=== PATIENT | male | born 1960 | race African-American/Black ===

== ENCOUNTER 2020-09-29 13:36 | Emergency (ER) | payer OTHER ==
[~2020-09-29] VITALS: Ht 170.2 cm; Wt 65.8 kg
[~2020-09-29 13:36] MED LIST: Acetaminophen 500mg (ES) tab ORAL SCH
--- NOTE | 2020-09-29 13:45 | NUR ---
ED Nurse Note: Pt BIBA R68 for R leg pain. Pt had a stroke 2 weeks ago. Pt is alert and orientedx4, ambulatory. Pt has been seen by ERMD. He has multiple wounds on posterior legs, R hip, L hand, no drainage on any of brielle wounds.
--- NOTE | 2020-09-29 14:10 | NUR ---
ED Nurse Note: Pt brought in by R68 for R leg pain 03/30. Pt also had stroke 2 weeks ago. Pt has wounds with no drainage on bilateral posterior legs, buttocks, L hand, R hip. Pt is alert and orientedx4, wheelchair bound. Pt has limited motion 3/5 on legs.
--- NOTE | 2020-09-29 14:13 | Emergency Room Report ---
History of Present Illness General Chief Complaint: Lower Extremity Injury Source: Patient Present Illness HPI Disclaimer: Please note that this report is being documented using DRAGON technology. This can lead to erroneous entry secondary to incorrect interpretation by the dictating instrument. HPI: 59-year-old male presents complaining of right leg pain. He [place] by EMS from the streets. He is wheelchair-bound from a stroke. Requesting clean clothes and something to eat as his clothes have become soiled and wet. Denies injury. He states he will have intermittent numbness and tingling in his fingertips and in his feet since his stroke several weeks ago. Denies pain in the neck or back. Denies urinary retention or fecal incontinence. EMS did not bring the patient's wheelchair. Denies bleeding, sores or skin breakdown otherwise. PMH: CVA PSH: Reviewed Allergies: Reviewed Social Hx: Reviewed Allergies: Coded Allergies: No Known Allergies (Unverified , 09/29/20) COVID-19 Screening Contact w/high risk pt: No Experienced COVID-19 symptoms?: No COVID-19 Testing performed DETAIL MANAGER: No Nursing Documentation-PMH Past Medical History: No History, Except For Hx Hypertension: Yes Hx Cerebrovascular Accident: Yes - right sided weakness Review of Systems All Other Systems: negative except mentioned in HPI Physical Exam Vital Signs Date Time Temp Pulse Resp B/P (MAP) Pulse Ox O2 Delivery O2 Flow Rate FiO2 09/29/20 13:28 98.4 88 16 148/72 (97) 98 Room Air General: Awake and alert, no acute distress HEENT: NC/AT. EOMI. Cardiovascular: RRR. S1 and S2 normal. No murmur appreciated Resp: Normal work of breathing. No cough, wheezing or crackles appreciated Abdomen: Abdomen is soft, nondistended. Nontender Skin: Skin over the legs are cold and wet from damp clothing. No obvious breakdown. MSK: Normal tone and bulk. Moving all extremities. No obvious deformity. Thighs, calves symmetrical. Nontender. 2/5 strength at the hips and knee on the right side. 4/5 strength on the left. 2+ PT and DP pulses bilaterally. Neuro: Awake and alert. Mentating appropriately. Diminished sensation symmetrically to light touch over the feet. Medical Decision Making Homeless Attestation Patient is homeless. Patient has been medically screened and is stable for outpatient follow up Diagnostic Impression: Primary Impression: Leg pain ER Course 59-year-old male history of CVA, chronic lower extremity pain, lower extremity weakness presents for evaluation of right leg pain. This is an ongoing issue for the patient since his stroke. He is wheelchair-bound. No new injury reported and I find no clinical evidence of DVT, bony injury, skin infection or other major pathology. Patient was provided with clean close and was cleaned up in the ER. Provided with food and will arrange to have his wheelchair brought back. We will start him on NSAIDs for his leg discomfort. Do not believe he requires emergent labs or imaging at this time. Will refer to outpatient clinic. Instructed to return with new or worsening symptoms. Patient provided with a new wheelchair. Stable for outpatient follow-up. Last Vital Signs Date Time Temp Pulse Resp B/P (MAP) Pulse Ox O2 Delivery O2 Flow Rate FiO2 09/29/20 13:28 98.4 88 16 148/72 (97) 98 Room Air Disposition: HOME, SELF-CARE Condition: Stable Scripts Acetaminophen* (TYLENOL EXTRA STRENGTH*) 500 Mg Tablet 500 MG ORAL Q8H PRN for Prn Headache/Temp > 101, #30 TAB 0 Refills Prov: Nabeel Vazquez MD 09/29/20 Ibuprofen* (MOTRIN*) 600 Mg Tablet 600 MG ORAL Q6H PRN for For Pain, #30 TAB 0 Refills Prov: Nabeel Vazquez MD 09/29/20 Patient Instructions: Chronic Pain Nabeel Vazquez MD Sep 29, 2020 14:13
[2020-09-29] MEDS ORDERED: TYLENOL EXTRA500 MG ORAL (14:14)
[2020-09-29] MEDS ORDERED: IBUPROFEN600 M1 ORAL (14:14)
--- NOTE | 2020-09-29 14:35 | NUR ---
ED Nurse Note: Trying to contact ambulance to brign wheelchair they left behind for patient in order to be discharged.
[2020-09-29] MEDS ORDERED: HYDROcodone/Acetamin 7.5/325 tab ORAL ONE (16:30)
[2020-09-29 18:00] VITALS: BP 140/75
[2020-09-29 18:07] VITALS: BP 140/76
--- NOTE | 2020-09-29 18:09 | NUR ---
ER DISCHARGE NOTE: Patient is cleared to be discharged per ERMD, pt is aox4, on room air, with stable vital signs. pt was given dc and prescription instructions, pt was able to verbalize understanding, pt id band removed. pt is able to ambulate with steady gait. pt took all belongings. Homeless log and mini cog completed. Pt is alert and ox4, able to provide self care. prescriptions porivded by pharmacy. Resources provided, food and clothign given to patient.
== END 2020-09-29 18:15 | disposition home or self-care (01) ==
LOC: EDBD 13:36 → EMR 14:05
DX: M79.604 Pain in right leg (principal); Z99.3 Dependence on wheelchair; Z86.73 Personal history of transient ischemic attack (TIA), and cerebral infarction without residual deficits; I10 Essential (primary) hypertension
CPT/HCPCS: 99283